=== PATIENT | male | born 1985 | race Caucasian/White ===

== ENCOUNTER 2021-11-10 19:54 | Emergency (ER) | payer SELFPAY ==
[2021-11-10 19:58] VITALS: BP 150/116; PULSE 140; RESP 18; TEMP 36.8; O2SAT 97; BMI 32.1
--- NOTE | 2021-11-10 20:21 | XRR_ITS ---
PROCEDURE INFORMATION: Exam: XR Chest Exam date and time: 11/10/2021 8:21 PM Age: 36 years old Clinical indication: Dyspnea TECHNIQUE: Imaging protocol: XR of the chest. Views: 1 view. COMPARISON: No relevant prior studies available. FINDINGS: Lungs: Unremarkable. No consolidation. Pleural spaces: Unremarkable. No pleural effusion. No pneumothorax. Heart/Mediastinum: Unremarkable. No cardiomegaly. Bones/joints: Unremarkable. XR/XR chest 1V portable [id number] IMPRESSION: No acute findings.
[2021-11-10 22:19] LABS: Basophils # 0.1 10^3/uL (0.0-0.1); Basophils % 1.4 %; Eosinophils # 0.1 10^3/uL (0.0-0.8); Eosinophils % 1.6 %; Hematocrit 55.9 % (42.0-52.0); Lymphocytes # 1.6 10^3/uL (0.8-4.8); Lymphocytes % 32.5 %; Mean Corpuscular Hemoglobin 33.5 pg (28.0-34.0); Mean Corpuscular Volume 98.6 fl (80-94); Mean Platelet Volume 9.2 fL (7.4-10.4); Monocytes # 0.5 10^3/uL (0.2-0.9); Monocytes % 8.9 %; Neutrophils # 2.79 10^3/uL (1.8-7.7); Neutrophils % 55.4 %; Nucleated Red Blood Cells % 0 %; Platelet Count 183 10^3/cmm (130-400); Red Blood Count 5.67 10^6/uL (4.1-5.3); Red Cell Distribution Width 14.4 % (12.1-15.1)
--- NOTE | 2021-11-10 22:21 | ECG_ITS ---
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 Measurements Intervals Story Rate: 97 P: 11 KS: 137 QRS: 3 QRSD: 94 T: 39 QT: 350 QTc: 445 Interpretive Statements SINUS RHYTHM No previous ECG available for comparison Electronically Signed On 11-11-2021 17:04:39 SET STAFF FITTER by Rosie Bonds M.D. [id number]
[2021-11-10 22:36] LABS: D Dimer 0.53 ug/mIFEU (0-0.59)
[2021-11-10 22:47] LABS: SARS Covid-2 Antigen Negative (Negative)
[2021-11-10 23:07] LABS: Troponin(5th) Baseline 6 ng/L (0-15)
[2021-11-10 23:14] LABS: Procalcitonin 0.05 ng/mL (0-0.5)
[2021-11-10 23:23] VITALS: BP 138/58; PULSE 108; RESP 20; O2SAT 96
[2021-11-10 23:25] LABS: Alanine Aminotransferase 40 U/L (0-41); Albumin Level 5.1 g/dL (3.5-5.2); Alkaline Phosphatase 84 IU/L (40-130); Anion Gap 24.6 (5-19); Aspartate Amino Transferase 36 U/L (0-40); Blood Urea Nitrogen 7 mg/dL (6-20); C Reactive Protein 0.8 mg/L (0.0-4.9); Calcium 9.3 mg/dL (8.5-10.5); Carbon Dioxide 19 mmol/L (22-29); Chloride 100 mmol/L (98-107); Globulin 2.9 g/dL (1.3-4.6); Glomerular Filtration Rate 128.3 mL/min (90-130); Glucose 83 mg/dL (65-115); Osmolality Calculated 287 mOsm/kg (285-295); Potassium 3.6 mmol/L (3.5-5.1); Sodium 140 mmol/L (136-145); Total Bilirubin 0.5 mg/dL (0.15-1.2)
[2021-11-11] LABS: NT Pro B Type Natriuretic Pept 5 pg/mL (0-125)
[2021-11-11] MEDS: sodium chloride 0.9% 1,000 ML 999 ML IV ×2 (00:04→00:08)
[2021-11-11] MEDS: LORazepam 2 mg/mL INJ 1 mL 1.5 MG IVP (00:04)
[2021-11-11 00:23] VITALS: BP 117/78; PULSE 112; RESP 20; O2SAT 99
--- NOTE | 2021-11-11 00:59 | PC.NURSE ---
Pt. resting in bed and has not complaints or pain at this time . pt. asks what is left or what is he waiting on to go home.
[2021-11-11 01:23] LABS: Add Urine Microscopic? YES; Bilirubin Urine Neg (Negative); Blood Urine Neg (Negative); Glucose Urine UA Norm (Normal); Ketones Urine Negative (Negative); Leukocyte Esterase Urine Negative (Negative); Nitrate Urine Negative (Negative); Protein Urine Trace (Negative); Specific Gravity, Urine 1.025 (1.005-1.030); Urine Appearance Clear (CLEAR); Urine Color Yellow (Yellow); Urobilinogen Urine Norm (Negative); pH Urine 5 (5-7)
--- NOTE | 2021-11-11 01:26 | W.ED.SOB ---
HPI - SOB/Dyspnea General: Chief Complaint: Shortness of Breath/Dyspnea Stated Complaint: cp Time Seen by Provider: 11/10/21 21:42 Source: patient History of Present Illness: HPI Narrative: 36-year-old male here complaining of generalized weakness, shortness of breath, body aches, chest discomfort, and nausea for the past several days. Denies significant fever or chills. No definite known sick contacts. Notes he has a history of anxiety, and is feeling quite anxious. MD elicited complaint: shortness of breath, cough, chest pain and anxiety Pertinent past history: other Timing: constant Severity: moderate Exacerbating factors: exertion and coughing Known history of: other Associated symptoms: Reports chest congestion, chest pain, cough and nausea; Deny abdominal pain, fever(s), palpitations or vomiting Treatment prior to arrival: none Related Data: Home oxygen amount: none Review of Systems Const: Denies: fever(s) ENMT: Reports: throat pain Card: Reports: chest pain; Denies: palpitations Resp: Reports: dyspnea and chest congestion GI: Reports: nausea; Denies: abdominal pain or vomiting Neuro: Reports: headache(s) Physical Exam Const: COMMON NORMALS: no acute distress GENERAL APPEARANCE: cooperative and ill appearing (Mildly) HENMT: COMMON NORMALS: normocephalic and Normal external nose present HEAD & SCALP: normocephalic FACE & SINUS: normal facial exam NOSE: Normal external nose present Eye: COMMON NORMALS: Equal, round and reactive pupils present and EOMs intact bilaterally PUPIL: Yes Equal, round and reactive pupils present Chest: COMMONS NORMALS: normal inspection of the chest Resp: COMMON NORMALS: normal respiratory effort, No retractions and No use of accessory muscles Cardio: COMMON NORMALS: regular rhythm and Peripheral pulses 2+ throughout RATE: tachycardic RHYTHM: regular rhythm PERIPHERAL PULSES: Peripheral pulses 2+ throughout GI: COMMON NORMALS: Normal to inspection, nondistended, normoactive bowel sounds present, Soft to palpation and non-tender PALPATION: Yes Soft to palpation Neuro: PRIMITIVO COMA SCALE: document GCS findings Primitivo coma scale eye opening: Spontaneous Primitivo coma scale verbal response: Orientated Primitivo coma scale motor response: Obey commands Primitivo coma scale total score: 15 Skin: COMMON NORMALS: no jaundice Course Vital Signs: Vital signs: Vital Signs Temperature 98.2 F 11/10/21 19:58 Pulse Rate 112 H 11/11/21 00:23 Respiratory Rate 20 H 11/11/21 00:23 Blood Pressure 117/78 11/11/21 00:23 Pulse Oximetry 99 11/11/21 00:23 MDM - SOB/Dyspnea Medical Decision Making 36-year-old male with multiple complaints. He is afebrile. Initial heart rate was elevated, but improved significantly to below 100 with 2 L bolus of fluid. White blood cell count is 5, hemoglobin 19 initially. Bicarbonate level is 19. Creatinine is 0.7. Chest x-ray is negative. D-dimer is negative. Troponin is negative. He was anxious on exam. He was given Ativan with improvement in this. His chest pain is resolved. COVID-19 antigen is negative. PCR is pending.He wishes to go home. With iprovement in his heart rate, and appropriate hydration, this seems appropriate. Lab Data : 11/10/21 22:03 11/10/21 22:03 Labs/Radiology: Radiology Impressions Chest X-Ray 11/10/21 20:21 IMPRESSION: No acute findings. Laboratory Results WBC 5.0 10^3/uL (4.0-10.0) 11/10/21 22:03 RBC 5.67 10^6/uL (4.1-5.3) H 11/10/21 22:03 Hgb 19.0 g/dL (11.7-16.6) H 11/10/21 22:03 Hct 55.9 % (42.0-52.0) H 11/10/21 22:03 MCV 98.6 fl (80-94) H 11/10/21 22:03 MCH 33.5 pg (28.0-34.0) 11/10/21 22:03 MCHC 34.0 g/dL (30.0-36.0) 11/10/21 22:03 RDW 14.4 % (12.1-15.1) 11/10/21 22:03 Plt Count 183 10^3/cmm (130-400) 11/10/21 22:03 MPV 9.2 fL (7.4-10.4) 11/10/21 22:03 Neut % (Auto) 55.4 % 11/10/21 22:03 Lymph % (Auto) 32.5 % 11/10/21 22:03 Bledsoe % (Auto) 8.9 % 11/10/21 22:03 Eos % (Auto) 1.6 % 11/10/21 22:03 Baso % (Auto) 1.4 % 11/10/21 22:03 Neut # (Auto) 2.79 10^3/uL (1.8-7.7) 11/10/21 22:03 Lymph # (Auto) 1.6 10^3/uL (0.8-4.8) 11/10/21 22:03 Bledsoe # (Auto) 0.5 10^3/uL (0.2-0.9) 11/10/21 22:03 Eos # (Auto) 0.1 10^3/uL (0.0-0.8) 11/10/21 22:03 Baso # (Auto) 0.1 10^3/uL (0.0-0.1) 11/10/21 22:03 Nucleated RBC % (auto) 0 % 11/10/21 22: Nucleated RBCs # 0.0 /100WBC 11/10/21 22:03 D-Dimer 0.53 ug/mIFEU (0-0.59) 11/10/21 22:03 Sodium 140 mmol/L (136-145) 11/10/21 22:03 Potassium 3.6 mmol/L (3.5-5.1) 11/10/21 22:03 Chloride 100 mmol/L (98-107) 11/10/21 22:03 Carbon Dioxide 19 mmol/L (22-29) L 11/10/21 22:03 Anion Gap 24.6 (5-19) H 11/10/21 22:03 BUN 7 mg/dL (6-20) 11/10/21 22:03 Creatinine 0.7 mg/dL (0.7-1.2) 11/10/21 22:03 GFR Calculation 128.3 mL/min (90-130) 11/10/21 22:03 Glucose 83 mg/dL (65-115) 11/10/21 22:03 Calculated Osmolality 287 mOsm/kg (285-295) 11/10/21 22:03 Calcium 9.3 mg/dL (8.5-10.5) 11/10/21 22:03 Total Bilirubin 0.5 mg/dL (0.15-1.2) 11/10/21 22: AST 36 U/L (0-40) 11/10/21 22: ALT 40 U/L (0-41) 11/10/21 22: Alkaline Phosphatase 84 IU/L (40-130) 11/10/21 22:03 Troponin T Baseline 6 ng/L (0-15) 11/10/21 22:03 Troponin T 120 Minute 8.32 ng/L (0-15) 11/11/21 00:58 Delta Troponin T Not Reportable 11/11/21 00:58 C-Reactive Protein 0.8 mg/L (0.0-4.9) 11/10/21 22: NT-Pro-B Natriuret Pep 5 pg/mL (0-125) 11/10/21 22: Total Protein 8.0 g/dL (6.6-8.7) 11/10/21 22: Albumin 5.1 g/dL (3.5-5.2) 11/10/21 22: Globulin 2.9 g/dL (1.3-4.6) 11/10/21 22: Procalcitonin 0.05 ng/mL (0-0.5) 11/10/21 22: Urine Color Yellow (Yellow) 11/11/21 00:30 Urine Appearance Clear (CLEAR) 11/11/21 00:30 Urine pH 5 (5-7) 11/11/21 00:30 Ur Specific [place] 1.025 (1.005-1.030) 11/11/21 00:30 Urine Protein Trace (Negative) 11/11/21 00:30 Urine Glucose (UA) Norm (Normal) 11/11/21 00:30 Urine Ketones Negative (Negative) 11/11/21 00:30 Urine Blood Neg (Negative) 11/11/21 00:30 Urine Nitrate Negative (Negative) 11/11/21 00:30 Urine Bilirubin Neg (Negative) 11/11/21 00:30 Urine Urobilinogen Norm mg/dL (Negative) 11/11/21 00:30 Ur Leukocyte Esterase Negative (Negative) 11/11/21 00:30 Urine RBC 0-4 /hpf (0-2) H 11/11/21 00:30 Urine WBC 0-4 /hpf (0-5) H 11/11/21 00:30 Ur Squamous Epith Cells 0-4 /hpf (0-5) H 11/11/21 00:30 Amorphous Sediment Not Reportable 11/11/21 00:30 Urine Bacteria Trace /hpf (NONE) 11/11/21 00:30 Hyaline Casts 0-4 /lpf H 11/11/21 00:30 Urine Mucus 4+ /hpf 11/11/21 00:30 Urine Opiates Screen Positive ng/mL (Negative) H 11/11/21 00:30 Ur Barbiturates Screen Negative ng/mL (Negative) 11/11/21 00:30 Ur Phencyclidine Scrn Negative ng/mL (Negative) 11/11/21 00:30 Ur Amphetamines Screen Negative ng/mL (Negative) 11/11/21 00:30 U Benzodiazepines Scrn Negative ng/mL (Negative) 11/11/21 00:30 Urine Cocaine Screen Negative ng/mL (Negative) 11/11/21 00:30 U Marijuana (THC) Screen Positive ng/mL (Negative) H 11/11/21 00:30 SARS-CoV-2 Ag (Rapid) Negative (Negative) 11/10/21 22:03 Discharge Plan Discharge Patient Disposition: Home Clinical Impression: Acute dehydration Condition: Stable Prescriptions: New Medrol ([place]) 4 mg tablets,dose pack See Rx Instructions .ROUTE .COMPLEX Qty: 21 0RF Rx Instructions: orally per package directions Discharge Orders: Discharge ED (Routine); Ordered 11/11/21 Ordered By: Daniel Garner Discharge Diet: Advance as tolerated Discharge Activity: Increase activity as tolerated Patient Instructions: Dehydration (ED) Activity Restrictions/Additional Instructions: A case management referral has been made for primary care follow-up for you. You should receive a call at the beginning of the week with an appointment. Return for worsening shortness of breath, worsening chest discomfort, mental status changes, fever greater than 100, any other concerning symptoms. Medication as directed. Drink plenty of liquids, especially for the next 48 hours. You should quarantine at home, until the results of your PCR Covid test are back and are deemed negative. Coding Level of Care Code ED Coding File Clerk for Deedee Fwd Exam Comprehensive
[2021-11-11 01:30] LABS: Add Urine Culture? No; Bacteria Urine TRACE /hpf; Hyaline Casts Urine 0-4 /lpf; Mucus Urine 4+ /hpf; RBC Urine 0-4 /hpf (0-2); Squamous Epithelial Cell Urine 0-4 /hpf (0-5); WBC Urine 0-4 /hpf (0-5)
[2021-11-11 01:32] LABS: Amphetamines Screen Urine Negative (Negative); Barbiturates Screen Urine Negative (Negative); Benzodiazepines Screen Urine Negative (Negative); Cocaine Screen Urine Negative (Negative); Opiate Screen Urine Positive (Negative); PCP Screen Urine Negative (Negative); THC Screen Urine Positive (Negative)
[2021-11-11 01:46] LABS: Troponin 5 2HR 8.32 ng/L (0-15)
[2021-11-12 17:03] LABS: Quest SARS-CoV-2 RNA NOT DETECTED (NOT DETECTED)
--- NOTE | 2021-11-14 15:55 | PC.NURSE ---
No answer, no voice mail
--- NOTE | 2021-11-16 13:17 | DCPLANNER ---
call or contact centre manager had message to speak with patient about getting a primary care physician. call or contact centre manager called phone number [phone], unable to speak with patient at this time and unable to leave a voicemail for patient.
== END 2021-11-11 02:26 | disposition home or self-care (01) ==
PROVIDERS: Nurse Practitioner Family; Emergency Provider Emergency Medicine
DX: E86.0 Dehydration (principal); Z20.822 Contact with and (suspected) exposure to COVID-19
CPT/HCPCS: 71045; 80053; 80306; 81001; 83880; 84145; 84484; 85025; 85378; 86140; 87426; 87635; 93005; 96361; 96374; 99284; J2060; J7030